=== PATIENT | male | born 1950 | race Caucasian/White ===

== ENCOUNTER 2016-11-09 16:17 | Emergency (ER) | payer BC ==
[2016-11-09 18:39] VITALS: BP 118/92
--- NOTE | 2016-11-09 20:52 | UC ---
Headache HPI - HPI Summary HPI Summary: c/o left posterior headaches for 1 month--nothing seems to make it better or worse. no neuro changes, no nausea, no visual changes no weakness or numbness in upper extremities - History Of Current Complaint Chief Complaint: UCHeadache Stated Complaint: HEADACHE Time Seen by Provider: 11/09/16 20:32 Hx Obtained From: Patient Onset/Duration: Gradual Onset, Lasting Weeks - 4, Still Present Onset Of Symptoms: Gradual Pain Intensity: 4 Timing: Constant Character: Dull Location of Headache: Occipital - left side Aggravating Factor: Other - direct pressure over left occipital/cervial spine aarea Allevating Factors: Nothing Associated Signs And Symptoms: Positive: Negative - Allergies/Home Medications Allergies/Adverse Reactions: Allergies Allergy/AdvReac Type Severity Reaction Status Date / Time dental anesthetic Allergy See Comment Uncoded 11/09/16 18:39 PMH/Surg Hx/FS Hx/Imm Hx Previously Healthy: Yes Endocrine History Of: Denies: Diabetes, Thyroid Disease Cardiovascular History Of: Denies: Cardiac Disorders, Hypertension Respiratory History Of: Denies: COPD, Asthma GI/ History Of: Denies: Ulcer - Surgical History Surgical History: None - Family History Known Family History: Positive: Unknown Family History: denies cardiovascular issues in family lineage - Social History Occupation: Employed Part-time Lives: With Family Alcohol Use: Occasionally Substance Use Type: None Smoking Status (MU): Current Every Day Smoker Type: Cigars Amount Used/How Often: "2 sm. cigars/day" Have You Smoked in the Last Year: Yes Review of Systems Constitutional: Negative Skin: Negative Eyes: Negative ENT: Negative Respiratory: Negative Cardiovascular: Negative Gastrointestinal: Negative Genitourinary: Negative Motor: Negative Neurovascular: Negative Musculoskeletal: Negative Neurological: Headache - left occipital and left side of cervical spine Psychological: Negative All Other Systems Reviewed And Are Negative: Yes Physical Exam Triage Information Reviewed: Yes Appearance: Well-Appearing, No Pain Distress, Well-Nourished Vital Signs: Initial Vital Signs Temp 98 F 11/09/16 18:35 Pulse 67 11/09/16 18:35 Resp 18 11/09/16 18:35 BP 118/92 11/09/16 18:35 Pulse Ox 97 11/09/16 18:35 Vital Signs Reviewed: Yes Eye Exam: Normal Eyes: Positive: Conjunctiva Clear ENT Exam: Normal ENT: Positive: Normal ENT inspection, Hearing grossly normal, Pharynx normal, TMs normal. Negative: Nasal congestion, Nasal drainage, Tonsillar swelling, Tonsillar exudate, Trismus, Muffled/hoarse voice Neck exam: Normal Neck: Positive: Supple, No Lymphadenopathy, Tenderness @ - left side of neck/ near occiput Respiratory Exam: Normal Respiratory: Positive: Chest non-tender, Lungs clear, Normal breath sounds, No respiratory distress, No accessory muscle use Cardiovascular Exam: Normal Cardiovascular: Positive: RRR, No Murmur, Pulses Normal, Brisk Capillary Refill Musculoskeletal Exam: Normal Musculoskeletal: Positive: Strength Intact, ROM Intact, No Edema Neurological Exam: Normal Neurological: Positive: Alert, Muscle Tone Normal Psychological Exam: Normal Skin Exam: Normal Diagnostics - Laboratory Diagnostic Studies Completed/Ordered: moderate to sever DDD and spinal stenosis cervical spine xray Headache Course/Dx - Course Course Of Treatment: naproxen, ultram follow with pcp re-check in next 5-7 days - Differential Dx/Diagnosis Differential Diagnosis/HQI/PQRI: Sinus Headache, Tension Headache, Viral Syndrome, Other - arthritis Provider Diagnoses: DDD , spinal stenosis cervical spine Discharge - Discharge Plan Condition: Stable Disposition: HOME Prescriptions: Naproxen [Naproxen 500 MG TABS] 500 mg PO BID PRN #20 tab PRN Reason: pain traMADol TAB* [Ultram*] 50 mg PO Q12H PRN #10 tab MDD 2 PRN Reason: more sever pain Patient Education Materials: Cervical Spinal Stenosis (ED), Degenerative Disc Disease (ED) Referrals: [facility]IAN REFERRAL [Outside] - 5 Days No Primary Care Phys,NOPCP [Primary Care Provider] -
--- NOTE | 2016-11-09 21:22 | RAD ---
INDICATION: Left-sided neck pain. COMPARISON: There are no prior studies available for comparison. TECHNIQUE: 5 views of the cervical spine were obtained including lateral, oblique, AP and open-mouth odontoid views. FINDINGS: C1-C7 are visualized. The vertebra are in normal alignment. No prevertebral soft tissue swelling or fracture is seen. There is [id number] disc space narrowing and uncinate process spurring present at the C2-C3, C3-C4, C4-C5, C5-C6, C6-C7 and C7-T1 levels. There is moderate to severe bilateral neural foraminal narrowing at those levels. IMPRESSION: DIFFUSE DEGENERATIVE DISC DISEASE.
== END 2016-11-09 21:50 | disposition home or self-care (01) ==
LOC: UCEAST 16:17
DX: M50.30 Other cervical disc degeneration, unspecified cervical region (principal); M48.02 Spinal stenosis, cervical region; Z88.4 Allergy status to anesthetic agent; F17.210 Nicotine dependence, cigarettes, uncomplicated
CPT/HCPCS: 72050; 99212; G0463